=== PATIENT | female | born 1975 | race Asian ===

== ENCOUNTER 2024-01-12 17:11 | Emergency (ER) | payer OTHER ==
[~2024-01-12] VITALS: Ht 165.1 cm; Wt 61.7 kg
[2024-01-12 17:29] VITALS: BP 113/69; PULSE 119; RESP 19; TEMP 98; O2SAT 99
[2024-01-12] MEDS: LORazepam 0.5 MG TAB PO ONE (18:47)
[2024-01-12] MEDS ORDERED: ATA25 PO (18:50)
[2024-01-12] MEDS ORDERED: ALBU0.0912 IH (19:22)
== END 2024-01-12 19:33 | disposition home or self-care (01) ==
LOC: MED 17:11
DX: F41.0 Panic disorder [episodic paroxysmal anxiety] (principal); Z79.899 Other long term (current) drug therapy
CPT/HCPCS: 93005; 99283